=== PATIENT | male | born 1940 | race Caucasian/White ===

== ENCOUNTER 2022-05-11 07:16 | Inpatient (IN) ==
[2022-05-11] MEDS ORDERED: Senna TAB 8.6 mg TAB PO PRN (17:11)
[2022-05-12 06:06] LABS: ABS Eosinophils 0.2 10^3/ul (0-0.6); ABS Lymphocytes 1.5 10^3/ul (1.0-4.8); ABS Neutrophils 5.3 10^3/ul (1.5-7.7); Eosinophil % 2.2 %; Hematocrit 25 % (42-52); Hemoglobin 7.7 g/dL (14.0-18.0); Lymphocyte % 18.7 %; Mean Corpuscular HGB Conc 31 g/dL (31-36); Mean Corpuscular Hemoglobin 26 pg (27-31); Mean Corpuscular Volume 84 fL (80-94); Mean Platelet Volume 8.7 fL (7.4-10.4); Platelet Count 233 10^3/uL (150-450); Red Blood Count 2.93 10^6 /uL (4.18-5.48); Red Cell Distribution Width 21 % (10-15)
[2022-05-12 06:36] LABS: Albumin 2.7 g/dL (3.2-5.2); Albumin/Globulin Ratio 1.2 (1-3); Globulin 2.3 g/dL (2-4); Potassium 4.6 mmol/L (3.5-5.0); Total Bilirubin 0.5 mg/dL (0.2-1.0); eGFR CKD-EPI 50.9 (>60)
[2022-05-12] MEDS: Aspirin EC 325 mg TAB.EC PO SCH (09:21)
[2022-05-12] MEDS ORDERED: Lidocaine PATCH 5% PATCH ONE (11:12)
[2022-05-12] MEDS: Lidocaine PATCH 5% PATCH TRANSDERM SCH (11:23)
[2022-05-13 07:16] LABS: Potassium 4.8 mmol/L (3.5-5.0); eGFR CKD-EPI 47.6 (>60)
[2022-05-13] MEDS: Aspirin EC 325 mg TAB.EC PO SCH (08:54)
[2022-05-13] MEDS: Lidocaine PATCH 5% PATCH TRANSDERM SCH (10:16)
[2022-05-13 15:06] LABS: Ferritin 158.9 ng/mL (24-336)
[2022-05-14 07:03] LABS: Calcium 9.2 mg/dL (8.6-10.3); Potassium 4.7 mmol/L (3.5-5.0); eGFR CKD-EPI 46.5 (>60)
[2022-05-14] MEDS: Aspirin EC 325 mg TAB.EC PO SCH (09:22)
[2022-05-14] MEDS: Lidocaine PATCH 5% PATCH TRANSDERM SCH (09:24)
[2022-05-14 11:32] LABS: Urine Appearance Clear; Urine Bilirubin Negative (Negative); Urine Blood 1+ (Small) (Negative); Urine Color Yellow; Urine Glucose Negative (Negative); Urine Ketones Negative (Negative); Urine Nitrite Negative (Negative); Urine Protein Negative (Negative); Urine Specific Gravity 1.015 (1.005-1.030); Urine Urobilinogen 0.2 (Negative) (Negative)
[2022-05-14 11:35] LABS: Urine Bacteria Absent (Absent); Urine Red Blood Cell 3+(>10/hpf) (Absent); Urine Squamous Epithelial Cell Present (Absent); Urine White Blood Cell 1+(6-10/hpf) (Absent)
[2022-05-15 06:26] LABS: Calcium 9.1 mg/dL (8.6-10.3); Potassium 4.6 mmol/L (3.5-5.0); eGFR CKD-EPI 41.8 (>60)
[2022-05-15] MEDS: Aspirin EC 325 mg TAB.EC PO SCH (08:15)
[2022-05-15] MEDS: Lidocaine PATCH 5% PATCH TRANSDERM SCH (08:16)
[2022-05-16] MEDS: Aspirin EC 325 mg TAB.EC PO SCH (08:20)
[2022-05-16] MEDS: Magnesium Hydroxide LIQ 30 ML UDC PO PRN (08:20)
[2022-05-16] MEDS: Lidocaine PATCH 5% PATCH TRANSDERM SCH (10:04)
[2022-05-16 13:01] LABS: Calcium 9.7 mg/dL (8.6-10.3); Potassium 4.6 mmol/L (3.5-5.0); eGFR CKD-EPI 42.1 (>60)
[2022-05-17 06:16] LABS: ABS Eosinophils 0.2 10^3/ul (0-0.6); ABS Lymphocytes 1.4 10^3/ul (1.0-4.8); ABS Monocytes 0.6 10^3/ul (0-0.8); ABS Neutrophils 3.4 10^3/ul (1.5-7.7); Eosinophil % 2.9 %; Hematocrit 24 % (42-52); Hemoglobin 7.7 g/dL (14.0-18.0); Lymphocyte % 25.4 %; Mean Corpuscular HGB Conc 32 g/dL (31-36); Mean Corpuscular Hemoglobin 26 pg (27-31); Mean Corpuscular Volume 84 fL (80-94); Mean Platelet Volume 7.9 fL (7.4-10.4); Nucleated Red Blood Cells % 0.1; Platelet Count 350 10^3/uL (150-450); Red Blood Count 2.92 10^6 /uL (4.18-5.48); Red Cell Distribution Width 22 % (10-15); White Blood Count 5.7 10^3/uL (3.5-10.8)
[2022-05-17 06:49] LABS: Calcium 9.4 mg/dL (8.6-10.3); Potassium 4.7 mmol/L (3.5-5.0); eGFR CKD-EPI 42.7 (>60)
[2022-05-17] MEDS: Aspirin EC 325 mg TAB.EC PO SCH (11:03)
[2022-05-17] MEDS: Lidocaine PATCH 5% PATCH TRANSDERM SCH (11:14)
[2022-05-18] MEDS: Lidocaine PATCH 5% PATCH TRANSDERM SCH (09:20)
[2022-05-18] MEDS: Aspirin EC 325 mg TAB.EC PO SCH (09:23)
[2022-05-19 06:03] LABS: ABS Eosinophils 0.2 10^3/ul (0-0.6); ABS Lymphocytes 1.5 10^3/ul (1.0-4.8); ABS Monocytes 0.5 10^3/ul (0-0.8); ABS Neutrophils 3.1 10^3/ul (1.5-7.7); Eosinophil % 3.1 %; Hematocrit 26 % (42-52); Hemoglobin 8.2 g/dL (14.0-18.0); Lymphocyte % 28.6 %; Mean Corpuscular HGB Conc 31 g/dL (31-36); Mean Corpuscular Hemoglobin 27 pg (27-31); Mean Corpuscular Volume 84 fL (80-94); Mean Platelet Volume 7.8 fL (7.4-10.4); Nucleated Red Blood Cells % 0.1; Platelet Count 370 10^3/uL (150-450); Red Blood Count 3.09 10^6 /uL (4.18-5.48); Red Cell Distribution Width 21 % (10-15); White Blood Count 5.3 10^3/uL (3.5-10.8)
[2022-05-19 06:21] LABS: Albumin 3.2 g/dL (3.2-5.2); Albumin/Globulin Ratio 1.2 (1-3); Calcium 9.6 mg/dL (8.6-10.3); Globulin 2.6 g/dL (2-4); Potassium 4.4 mmol/L (3.5-5.0); Total Bilirubin 0.4 mg/dL (0.2-1.0); Total Protein 5.8 g/dL (6.4-8.9); eGFR CKD-EPI 38.9 (>60)
[2022-05-19] MEDS: Lidocaine PATCH 5% PATCH TRANSDERM SCH (08:56)
[2022-05-19] MEDS: Aspirin EC 325 mg TAB.EC PO SCH (08:56)
[2022-05-20] MEDS: Lidocaine PATCH 5% PATCH TRANSDERM SCH (07:25)
[2022-05-20] MEDS: Aspirin EC 325 mg TAB.EC PO SCH (07:27)
[2022-05-20] MEDS: Magnesium Hydroxide LIQ 30 ML UDC PO PRN (07:28)
[2022-05-20] MEDS ORDERED: Polyethylene Glycol 3350 17 GM PACKET PO PRN (18:27)
[2022-05-20] MEDS: Senna TAB 8.6 mg TAB PO SCH (20:42)
[2022-05-21] MEDS: Aspirin EC 325 mg TAB.EC PO SCH (09:03)
[2022-05-21] MEDS: Lidocaine PATCH 5% PATCH TRANSDERM SCH (09:06)
[2022-05-21] MEDS: Senna TAB 8.6 mg TAB PO SCH (21:20)
[2022-05-22] MEDS: Lidocaine PATCH 5% PATCH TRANSDERM SCH (09:08)
[2022-05-22] MEDS: Aspirin EC 325 mg TAB.EC PO SCH (09:08)
[2022-05-22] MEDS: Magnesium Hydroxide LIQ 30 ML UDC PO PRN (09:09)
[2022-05-22] MEDS: Senna TAB 8.6 mg TAB PO SCH (21:00)
[2022-05-23] MEDS: Aspirin EC 325 mg TAB.EC PO SCH (09:00)
[2022-05-23] MEDS: Lidocaine PATCH 5% PATCH TRANSDERM SCH (09:03)
[2022-05-23] MEDS: Polyethylene Glycol 3350 17 GM PACKET PO SCH (09:05)
[2022-05-23] MEDS: Senna TAB 8.6 mg TAB PO SCH (20:44)
[2022-05-24 06:30] LABS: Calcium 9.8 mg/dL (8.6-10.3); Potassium 4.4 mmol/L (3.5-5.0); eGFR CKD-EPI 41.8 (>60)
[2022-05-24] MEDS: Lidocaine PATCH 5% PATCH TRANSDERM SCH (09:12)
[2022-05-24] MEDS: Cholecalciferol (VIT D3) 1,000 unit TAB PO SCH (09:13)
[2022-05-24] MEDS: Polyethylene Glycol 3350 17 GM PACKET PO SCH (09:14)
[2022-05-24] MEDS: Aspirin EC 325 mg TAB.EC PO SCH (09:15)
[2022-05-24] MEDS: Senna TAB 8.6 mg TAB PO SCH (21:33)
[2022-05-25] MEDS: Cholecalciferol (VIT D3) 1,000 unit TAB PO SCH (10:08)
[2022-05-25] MEDS: Polyethylene Glycol 3350 17 GM PACKET PO SCH (10:16)
[2022-05-25] MEDS: Aspirin EC 325 mg TAB.EC PO SCH (10:18)
[2022-05-25] MEDS: Lidocaine PATCH 5% PATCH TRANSDERM SCH (10:26)
[2022-05-25] MEDS: Senna TAB 8.6 mg TAB PO SCH (21:37)
[2022-05-26 06:23] LABS: ABS Eosinophils 0.3 10^3/ul (0-0.6); ABS Lymphocytes 1.6 10^3/ul (1.0-4.8); ABS Monocytes 0.7 10^3/ul (0-0.8); ABS Neutrophils 2.2 10^3/ul (1.5-7.7); Hematocrit 27 % (42-52); Lymphocyte % 32.9 %; Mean Corpuscular HGB Conc 33 g/dL (31-36); Mean Corpuscular Hemoglobin 29 pg (27-31); Mean Corpuscular Volume 86 fL (80-94); Mean Platelet Volume 7.9 fL (7.4-10.4); Nucleated Red Blood Cells % 0.1; Platelet Count 255 10^3/uL (150-450); Red Blood Count 3.15 10^6 /uL (4.18-5.48); Red Cell Distribution Width 23 % (10-15); White Blood Count 4.8 10^3/uL (3.5-10.8)
[2022-05-26 07:00] LABS: Albumin 3.2 g/dL (3.2-5.2); Albumin/Globulin Ratio 1.3 (1-3); Calcium 9.8 mg/dL (8.6-10.3); Globulin 2.4 g/dL (2-4); Potassium 4.7 mmol/L (3.5-5.0); Total Bilirubin 0.4 mg/dL (0.2-1.0); Total Protein 5.6 g/dL (6.4-8.9)
[2022-05-26 09:24] VITALS: BP 125/67
[2022-05-26] MEDS: Aspirin EC 325 mg TAB.EC PO SCH (10:18)
[2022-05-26] MEDS: Cholecalciferol (VIT D3) 1,000 unit TAB PO SCH (10:18)
[2022-05-26] MEDS: Lidocaine PATCH 5% PATCH TRANSDERM SCH (10:18)
[2022-05-26] MEDS: Polyethylene Glycol 3350 17 GM PACKET PO SCH (10:19)
== END 2022-05-26 13:55 | disposition home or self-care (01) | DRG 949 ==
LOC: PMRU 15:06
PROVIDERS: ADMIT Physical Medicine & Rehabilitation; ATTEND Physical Medicine & Rehabilitation